=== PATIENT | female | born 1940 | race Caucasian/White ===

== ENCOUNTER 2018-01-27 03:51 | Inpatient (IN) | payer MEDICARE, BC ==
[2018-01-27 04:50] VITALS: BP 156/92
[2018-01-27] MEDS ORDERED: ACETAMINOPHEN WITH CODEINE PO PRN (04:58)
[2018-01-27] MEDS ORDERED: [UNRECOGNIZED DRUG - OTHER] PO PRN (04:58)
[2018-01-27 07:32] LABS: CHOLESTEROL 195 mg/dL (<200); HDL -HIGH DENSITY LIPOPROTEIN 61 mg/dL (23-92); TRIGLYCERIDES 79 mg/dL (<150)
[2018-01-27] MEDS: Levothyroxine 0.125 Mg Tab PO SCH (07:46)
[2018-01-27] MEDS ORDERED: FLUOCINOLONE ACETONIDE OIL EACH EAR PRN (08:46)
[2018-01-27] MEDS ORDERED: AMPHETAMINE PO PRN (08:46)
[2018-01-27] MEDS ORDERED: DEXTROAMPHETAMINE PO PRN (08:46)
[2018-01-27] MEDS: APAP/Codeine 300 mg/30 mg Tab PO PRN ×2 (08:57→17:37)
[2018-01-27] MEDS ORDERED: IBANDRONATE SODIUM 150 MG PO SCH (09:00)
[2018-01-27] MEDS ORDERED: DESVENLAFAXINE 100 MG PO SCH (09:00)
--- NOTE | 2018-01-27 09:16 | History and Physical ---
History of Present Illness - HPI Chief Complaint: Suicidal ideas HPI: Patient was taken to ER by son due to suicidal ideas. Patient refer to have neck pain and having suicidal thoughts, and per son information patient was trying to load her gun. Patient was transferred to this unit to continue of care. Vital Signs: Last Vital Signs Temp 98 F 01/27/18 04:50 Pulse 72 01/27/18 04:50 Resp 19 01/27/18 04:50 BP 156/92 01/27/18 04:50 Pulse Ox 93 01/27/18 04:50 Past Medical History Cardiovascular: Report: No Pertinent Hx Pulmonary: Report: No Pertinent Hx APPLE CHECKER: Report: No Pertinent Hx GI: Report: No Pertinent Hx Psych: Report: Depression Musculoskeletal: Report: No Pertinent Hx Rheumatologic: Report: No pertinent Hx Infectious Disease: Report: No Pertinent Hx Renal/: Report: No Pertinent Hx Endocrine: Report: Hypothyroidism Dermatology: Report: No Pertinent Hx - Past Surgical History Past Surgical History: No pertinent Hx Family Medical History - Family Member mother History Unknown: Yes Ethnicity: Unknown Living Status: Unknown Hx Family Cancer: (unknown) Hx Family Coronary Artery Disease: (unknown) Hx Family Congestive Heart Failure: (unknown) Hx Family Hypertension: (unknown) Hx Family Stroke: (unknown) Hx Family Diabetes: (unknown) Hx Family Seizures: (unknown) Hx Family Dementia: (unknown) Hx Family AIDS: (unknown) Hx Family COPD: (unknown) Hx Family Hepatitis: (unknown) Hx Family Psychiatric Problems: (unknown) Hx Family Tuberculosis: (unknown) Social History Smoke: No Alcohol: None Drugs: None Lives: With Family Domestic Violence: Negative - Medications Home Medications: Home Medication Medication Instructions Recorded Type Acetaminophen with Codeine 1 tab PO Q8HR PRN 01/27/18 History [Acetaminophen-Cod #4 Tablet] Bupropion HCl [Bupropion HCl Sr] 450 mg PO DAILY 01/27/18 History Citalopram Hydrobromide [Celexa] 40 mg PO DAILY 01/27/18 History Desvenlafaxine [Desvenlafaxine ER] 100 mg PO DAILY 01/27/18 History Dextroamphetamine/Amphetamine 20 mg PO DAILY PRN 01/27/18 History [Amphetamine Salt Combo*] Fluocinolone Acetonide Oil 5 drop EACH EAR BID PRN 01/27/18 History Gabapentin 100 mg PO TID 01/27/18 History Ibandronate Sodium [Boniva] 150 mg PO [id number] 01/27/18 History Levothyroxine [Synthroid] 0.125 mg PO QDAC 01/27/18 History Mirabegron [Myrbetriq] 25 mg PO DAILY 01/27/18 History - Allergies Allergies/Adverse Reactions: Allergies Allergy/AdvReac Type Severity Reaction Status Date / Time No Known Allergies Allergy Verified 01/27/18 04:34 Review of Systems - Review of Systems Constitutional: Report: No Significant Eyes: Report: No Significant ENT: Report: No Significant Respiratory: Report: No Significant Cardiovascular: Report: No Significant Gastrointestinal: Report: No Significant Genitourinary: Report: No Significant Musculoskeletal: Report: Neck Pain Skin: Report: No Significant Neurological: Report: No Significant Physical Exam - Physical Exam HEENT: Report: Ears Nose Throat within normal limits Neck: Report: Within normal limits Cardiovascular Systems: Report: Regular, Rate and Rhythm Respiratory: Report: Breath Sounds are within normal limits Abdomen: Report: Non-tender to palpation Back: Report: Inspection of back is within normal limits. Extremities: Report: Non-tender to palpation. Skin: Report: Color of skin is within normal limits Neuro/Psych: Report: Depressed affect - Lab Results All Lab Results last 24 hours: Laboratory Results - last 24 hr 01/27/18 07:41 Triglycerides 79 Cholesterol 195 LDL Cholesterol Direct 107 HDL Cholesterol 61 - Assessment Assessment: Patient is awake, alert, calm, in no acute distress. UA done in ER shows UTI. Dx: Suicidal thoughts, Depression, Chronic neck pain, UTU, Hypothyroidism. - Plan Plan: Patient is follow by Psychiatry, Continue with home meds, Bactrim is added to treatment. Will continue to monitor.
[2018-01-27] MEDS: Non-Formulary Item 1 EA (Mirabegron [Myrbetriq] 25 MG) PO SCH (09:30)
[2018-01-27] MEDS: Sulfamethoxazole/TMP 800/160mg Tab PO SCH ×2 (09:30→17:38)
[2018-01-28] MEDS: Levothyroxine 0.125 Mg Tab PO SCH (06:43)
[2018-01-28] MEDS: Sulfamethoxazole/TMP 800/160mg Tab PO SCH ×2 (09:37→17:29)
[2018-01-28] MEDS: Non-Formulary Item 1 EA (Mirabegron [Myrbetriq] 25 MG) PO SCH (10:11)
--- NOTE | 2018-01-28 10:19 | General Progress Note ---
Subjective - Review of Systems Service Date: 01/28/18 Subjective: I am fine Objective - Results Recent Labs: Laboratory Last Values Triglycerides 79 mg/dL (<150) 01/27/18 07:41 Cholesterol 195 mg/dL (<200) 01/27/18 07:41 LDL Cholesterol Direct 107 mg/dL (75-193) 01/27/18 07:41 HDL Cholesterol 61 mg/dL (23-92) 01/27/18 07:41 - Physical Exam Vitals and I&O: Vital Signs Temp 98.1 F 01/28/18 06:46 Pulse 71 01/28/18 06:46 Resp 19 01/28/18 08:00 BP 118/64 01/28/18 06:46 Pulse Ox 96 01/28/18 06:46 Intake & Output 01/27/18 01/28/18 01/28/18 18:59 06:59 18:59 Intake Total 120 Balance 120 Intake: Oral 120 Other: # Voids 2 # Bowel Movements 0 Active Medications: Current Medications Acetaminophen/Codeine Phosphate (Tylenol W/Codeine #3) 1 tab PO Q8H PRN PRN Reason: MODERATE PAIN (LEVEL 4-6) Stop: 03/28/18 05:30 Last Admin: 01/27/18 17:37 Dose: 1 tab Bupropion HCl (Wellbutrin Sr) 450 mg PO DAILY [facility] Stop: 03/28/18 08:59 Last Admin: 01/28/18 09:39 Dose: 450 mg Citalopram Hydrobromide (Celexa) 40 mg PO DAILY [facility] Stop: 03/28/18 08:59 Last Admin: 01/28/18 09:37 Dose: 40 mg Gabapentin (Neurontin) 100 mg PO TID [facility] Stop: 03/28/18 08:59 Last Admin: 01/28/18 09:36 Dose: 100 mg Levothyroxine Sodium (Synthroid) 0.125 mg PO QDAC [facility] Stop: 03/28/18 07:29 Last Admin: 01/28/18 06:43 Dose: 0.125 mg Lorazepam (Ativan) 0.5 mg PO Q4H PRN; Protocol PRN Reason: Anxiety Stop: 03/28/18 04:49 Last Admin: 01/27/18 20:48 Dose: 0.5 mg Quetiapine Fumarate (Seroquel) 25 mg PO HS [facility]; Protocol Stop: 03/28/18 20:59 Last Admin: 01/27/18 20:47 Dose: 25 mg Trimethoprim/Sulfamethoxazole (Bactrim Ds) 1 tab PO BID [facility] Stop: 03/28/18 09:29 Last Admin: 01/28/18 09:37 Dose: 1 tab Zolpidem Tartrate (Ambien) 5 mg PO HS PRN PRN Reason: Insomnia Stop: 03/28/18 04:49 General: Alert HEENT: Atraumatic Neck: Supple Cardiovascular: Regular rate Abdomen: Bowel sounds Extremities: Other (No edema) Neurological: Normal gait Skin: Other (Warm and dry) Psych/Mental Status: Other (Confused) Assessment/Plan - Assessment Assessment: Patient is awake, alert, calm, in no acute distress. UA done in ER shows UTI. Dx: Suicidal thoughts, Depression, Chronic neck pain, UTU, Hypothyroidism. - Plan Plan: Patient is follow by Psychiatry, Continue with home meds, Bactrim is added to treatment. Will continue to monitor.
[2018-01-28] MEDS: APAP/Codeine 300 mg/30 mg Tab PO PRN (15:28)
--- NOTE | 2018-01-28 16:41 | Psychiatric Evaluation ---
DATE OF SERVICE: JUSTIFICATION FOR HOSPITALIZATION: The patient apparently suicidal and history of bipolar. CHIEF COMPLAINT: "I was in a lot of pain. My neck felt like fire." HISTORY OF PRESENT ILLNESS: A 77-year-old female brought to the ER by son with suicidal ideations. The patient with neck pain, "sometimes neck pain." "Feels like fire," per the son. The patient was apparently trying to load a gun, concerns that she was trying to hurt herself. The patient states that she has had suicidal fantasies for "years and years." She states she has never attempted suicide. The patient is depressed, overwhelmed, overwhelmed with pain, trouble sleeping due to pain, okay appetite. The patient with intermittent hopeless thoughts. Currently not in pain "I am pretty comfortable right now." PAST PSYCHIATRIC HISTORY: Bipolar, long history of suicidal ideations and fantasies. FAMILY HISTORY: Noncontributory. SOCIAL HISTORY: The patient was born in [place]. Her father was apparently in the [place], so she moved around a lot. Currently, , one child, a son age 47. Living with son and the son's . No current drugs, alcohol, or tobacco. The patient alluding to depression, stating, "I got little of what I actually wanted out of life." MENTAL STATUS EXAMINATION: Fair eye contact. Speech within normal limits, mildly pressured. Mood depressed. Affect depressed. Thought processes were tangential, ruminative, difficult to redirect. The patient is suicidal, thoughts to kill self with a gun. No HI. The patient without any overt psychotic symptoms. Poor insight, poor judgment. PROVISIONAL DIAGNOSES: Bipolar per history. MEDICAL: Please see full H and P. ESTIMATED LENGTH OF STAY: 5-6 days. ASSESSMENT: The patient with history of bipolar, severely depressed, suicidal, endorsing intent and plan. PLAN: We will continue to monitor. The patient will likely benefit from mood stabilizing medications as Seroquel. TREATMENT PLAN: Includes group as well as milieu therapy. CONDITIONS FOR DISCHARGE: Improved mood, improved affect, better control of any suicidal symptoms. [facility]# [id number]
--- NOTE | 2018-01-29 02:16 | Progress Notes ---
DATE: 01/28/2018 SUBJECTIVE: The patient in the hospital, calm, cooperative. She is fairly confused, does not really know why she is here, forgetful, mostly in her bed, withdrawn. The patient noted to be disoriented, believing that nurses are doctors, does not know who I am, although I saw her yesterday, history of bipolar. Medications were noted including dosages and frequencies, currently on Celexa, low dose Seroquel. ASSESSMENT: The patient remains symptomatic. Ongoing safety concerns, concerns about impulsivity, hopeless thoughts. PLAN: We will continue to monitor, the patient was complaining of lot of neck pain originally, but she is not complaining of pain right now. [facility]# [id number]
[2018-01-29] MEDS: Levothyroxine 0.125 Mg Tab PO SCH (06:49)
--- NOTE | 2018-01-29 08:52 | General Progress Note ---
Subjective - Review of Systems Service Date: 01/29/18 Subjective: I am fine Objective - Results Recent Labs: Laboratory Last Values Triglycerides 79 mg/dL (<150) 01/27/18 07:41 Cholesterol 195 mg/dL (<200) 01/27/18 07:41 LDL Cholesterol Direct 107 mg/dL (75-193) 01/27/18 07:41 HDL Cholesterol 61 mg/dL (23-92) 01/27/18 07:41 TSH 4.72 uIU/ml (0.34-5.60) 01/28/18 10:47 - Physical Exam Vitals and I&O: Vital Signs Temp 97.4 F 01/29/18 06:26 Pulse 68 01/29/18 06:26 Resp 19 01/29/18 06:26 BP 110/62 01/29/18 06:26 Pulse Ox 97 01/29/18 06:26 Intake & Output 01/28/18 01/29/18 01/29/18 18:59 06:59 18:59 Intake Total 1500 240 Balance 1500 240 Intake: Oral 1500 240 Other: # Voids 3 2 # Bowel Movements 0 0 Active Medications: Current Medications Acetaminophen/Codeine Phosphate (Tylenol W/Codeine #3) 1 tab PO Q8H PRN PRN Reason: MODERATE PAIN (LEVEL 4-6) Stop: 03/28/18 05:30 Last Admin: 01/28/18 15:28 Dose: 1 tab Bupropion HCl (Wellbutrin Sr) 450 mg PO DAILY [facility] Stop: 03/28/18 08:59 Last Admin: 01/28/18 09:39 Dose: 450 mg Citalopram Hydrobromide (Celexa) 40 mg PO DAILY [facility] Stop: 03/28/18 08:59 Last Admin: 01/28/18 09:37 Dose: 40 mg Gabapentin (Neurontin) 100 mg PO TID [facility] Stop: 03/28/18 08:59 Last Admin: 01/28/18 20:16 Dose: 100 mg Levothyroxine Sodium (Synthroid) 0.125 mg PO QDAC [facility] Stop: 03/28/18 07:29 Last Admin: 01/29/18 06:49 Dose: 0.125 mg Lorazepam (Ativan) 0.5 mg PO Q4H PRN; Protocol PRN Reason: Anxiety Stop: 03/28/18 04:49 Last Admin: 01/28/18 20:16 Dose: 0.5 mg Quetiapine Fumarate (Seroquel) 25 mg PO HS [facility]; Protocol Stop: 03/28/18 20:59 Last Admin: 01/28/18 20:16 Dose: 25 mg Trimethoprim/Sulfamethoxazole (Bactrim Ds) 1 tab PO BID [facility] Stop: 03/28/18 09:29 Last Admin: 01/28/18 17:29 Dose: 1 tab Zolpidem Tartrate (Ambien) 5 mg PO HS PRN PRN Reason: Insomnia Stop: 03/28/18 04:49 General: Alert HEENT: Atraumatic Neck: Supple Cardiovascular: Regular rate Abdomen: Bowel sounds Extremities: Other (No edema) Neurological: Normal gait Skin: Other (Warm and dry) Psych/Mental Status: Other (Confused) Assessment/Plan - Assessment Assessment: Patient is awake, alert, calm, in no acute distress. UA done in ER shows UTI. Dx: Suicidal thoughts, Depression, Chronic neck pain, UTU, Hypothyroidism. - Plan Plan: Patient is follow by Psychiatry, Continue with home meds, Bactrim is added to treatment. Will continue to monitor.
[2018-01-29] MEDS: Sulfamethoxazole/TMP 800/160mg Tab PO SCH ×2 (08:55→17:09)
[2018-01-29] MEDS: APAP/Codeine 300 mg/30 mg Tab PO PRN (15:53)
--- NOTE | 2018-01-29 21:30 | Progress Notes ---
DATE: 01/29/2018 SUBJECTIVE: The patient in the hospital calm, cooperative, fairly confused, rambling, making some nonsensical statements. No acute distress, somewhat confused as to why she is here, alluding to ongoing neck pain, irritable, periods of confusion and withdrawn, mostly isolative. The patient is sleeping fairly well, eating fairly well. ASSESSMENT: The patient is still depressed, withdrawn, ongoing symptoms, suicidality, severe depression and ongoing neck pain. PLAN: We will continue to monitor. Medications were noted. I would recommend ongoing continuation of medications as well as optimizing pain management. JOB# [id number]
[2018-01-30] MEDS: APAP/Codeine 300 mg/30 mg Tab PO PRN ×2 (00:25→16:36)
[2018-01-30] MEDS: Levothyroxine 0.125 Mg Tab PO SCH (06:50)
--- NOTE | 2018-01-30 07:17 | Progress Notes ---
DATE: 01/30/2018 SUBJECTIVE: The patient is somewhat unruly asking for different pain medications, they are not on formulary. The patient still rambling, poorly oriented, seen this morning, somewhat restless, guarded about any SI, some yelling episodes. Sleeping fairly well, eating fairly well. Slept about 8 hours. ASSESSMENT: The patient is depressed, withdrawn, forgetful, guarded about any SI, still complaining of pain medications. PLAN: We will continue to monitor, titrate and adjust medications. Given ongoing symptoms, she is not safe for discharge. Medications were reviewed including dosages and frequencies. Consider continue Seroquel and Celexa. JOB# [id number]
[2018-01-30] MEDS: Sulfamethoxazole/TMP 800/160mg Tab PO SCH ×2 (09:27→16:36)
--- NOTE | 2018-01-30 10:20 | General Progress Note ---
Subjective - Review of Systems Service Date: 01/30/18 Subjective: I am fine Objective - Results Recent Labs: Laboratory Last Values Triglycerides 79 mg/dL (<150) 01/27/18 07:41 Cholesterol 195 mg/dL (<200) 01/27/18 07:41 LDL Cholesterol Direct 107 mg/dL (75-193) 01/27/18 07:41 HDL Cholesterol 61 mg/dL (23-92) 01/27/18 07:41 TSH 4.72 uIU/ml (0.34-5.60) 01/28/18 10:47 - Physical Exam Vitals and I&O: Vital Signs Temp 98.9 F 01/30/18 05:55 Pulse 82 01/30/18 05:55 Resp 19 01/30/18 05:55 BP 143/55 01/30/18 05:55 Pulse Ox 96 01/30/18 05:55 Active Medications: Current Medications Acetaminophen/Codeine Phosphate (Tylenol W/Codeine #3) 1 tab PO Q8H PRN PRN Reason: MODERATE PAIN (LEVEL 4-6) Stop: 03/28/18 05:30 Last Admin: 01/30/18 00:25 Dose: 1 tab Bupropion HCl (Wellbutrin Sr) 450 mg PO DAILY [facility] Stop: 03/28/18 08:59 Last Admin: 01/30/18 09:27 Dose: 450 mg Citalopram Hydrobromide (Celexa) 40 mg PO DAILY [facility] Stop: 03/28/18 08:59 Last Admin: 01/30/18 09:27 Dose: 40 mg Gabapentin (Neurontin) 100 mg PO TID [facility] Stop: 03/28/18 08:59 Last Admin: 01/30/18 09:27 Dose: 100 mg Levothyroxine Sodium (Synthroid) 0.125 mg PO QDAC [facility] Stop: 03/28/18 07:29 Last Admin: 01/30/18 06:50 Dose: 0.125 mg Lorazepam (Ativan) 0.5 mg PO Q4H PRN; Protocol PRN Reason: Anxiety Stop: 03/28/18 04:49 Last Admin: 01/28/18 20:16 Dose: 0.5 mg Quetiapine Fumarate (Seroquel) 25 mg PO HS [facility]; Protocol Stop: 03/28/18 20:59 Last Admin: 01/29/18 20:54 Dose: 25 mg Trimethoprim/Sulfamethoxazole (Bactrim Ds) 1 tab PO BID [facility] Stop: 03/28/18 09:29 Last Admin: 01/30/18 09:27 Dose: 1 tab Zolpidem Tartrate (Ambien) 5 mg PO HS PRN PRN Reason: Insomnia Stop: 03/28/18 04:49 General: Alert HEENT: Atraumatic Neck: Supple Cardiovascular: Regular rate Abdomen: Bowel sounds Extremities: Other (No edema) Neurological: Normal gait Skin: Other (Warm and dry) Psych/Mental Status: Other (Confused) Assessment/Plan - Assessment Assessment: Patient is awake, alert, calm, in no acute distress. UA done in ER shows UTI. Dx: Suicidal thoughts, Depression, Chronic neck pain, UTU, Hypothyroidism. - Plan Plan: Patient is follow by Psychiatry, Continue with home meds, Bactrim is added to treatment. Will continue to monitor. Nutritional Asmnt/Malnutr-PDOC - Dietary Evaluation Malnutrition Findings (Please click <Entered> for more info): Nutritional Asmnt/Malnutrition Start: 01/29/18 12: 51 Text: Status: Complete Freq: Protocol: Document 01/29/18 12:51 GUNNER (Rec: 01/29/18 13:05 GUNNER [id number]) Nutritional Asmnt/Malnutrition Patient General Information Nutritional Screening Moderate Risk Diagnosis suicidal ideation Pertinent Medical Hx/Surgical Hx hypothyroidism, depression, bipolar Subjective Information Pt eating lunch in bed at time of visit. Pt's very alert and oriented, provided food preferences and diet profile updated. Nursing noted PO intake: 100%. Current Diet Order/ Nutrition Support regular Pertinent Medications synthroid, seroquel Pertinent Labs 01/27 Nutrition related labs WNL Nutritional Hx/Data Height 1.6 m Height (Calculated Centimeters) 160.0 Current Weight (lbs) 105.324 kg Weight (Calculated Kilograms) 105.3 Weight (Calculated Grams) 866268.1 [place] Body Weight 115 lb Body Mass Index (BMI) 41.1 Weight Status Obese GI Symptoms GI Symptoms None Last BM none noted Difficult in: None Food Allergies No Skin Integrity/Comment: intact, koko 21 Current %PO Good (75-100%) Estimated Nutritional Goals BEE in Kcals: Adj wt of IBW Calories/Kcals/Kg 25-30 (based on adj wt 65.6 kg ) Kcals Calculated Protein: Adj wt of IBW Protein g/k.0 Protein Calculated 66 g Fluid: ml (1 ml/kcal) Nutritional Problem No current Nutrition Prob Problem no nutrition dx at this time Malnutrition Alert Is there a minimum of two criteria No selected? Query Text:Check all the applicable criteria. A minimum of two criteria are recommended for diagnosis of either severe or non-severe malnutrition. Malnutrition Related to Morbid Obesity Malnutrition related to morbid obesity No Intervention/Recommendation Comments 1. Continue with regular diet as ordered 2. Monitor PO intake, wt, labs and skin integrity 3. F/U as low risk in 7 days, 02/05 Expected Outcomes/Goals Expected Outcomes/Goals 1. PO intake to meet at least 75% of nutritional needs. 2. Wt stability, skin to remain intact, nutrition related labs to remain WNL Reviewed by Steffanie Polanco RD
[2018-01-30] MEDS: TYLENOL PO SCH (16:19)
[2018-01-31] MEDS: APAP/Codeine 300 mg/30 mg Tab PO PRN (01:35)
[2018-01-31] MEDS: Levothyroxine 0.125 Mg Tab PO SCH (06:40)
--- NOTE | 2018-01-31 07:10 | Progress Notes ---
DATE: 01/31/2018 SUBJECTIVE: The patient is depressed, withdrawn, still argumentative at times, very sore neck, painful neck, some periods of forgetfulness. At first, believing it was 1986, then realizing it is 2017. The patient is believing that medication is still on the floor, very fixated on getting Tylenol #4. Staff concerned because she was making statements that she would keep her medications stashed in her room, the medications coming from home, concerns for cheeking. The patient states everything is "fine." She states that she still feels suicidal. "It is always there." ASSESSMENT: The patient is depressed, withdrawn, some bizarre behaviors. PLAN: We will continue to monitor. Continue Celexa. The patient remains impulsive, unpredictable behaviors. JOB# [id number]
[2018-01-31] MEDS: Sulfamethoxazole/TMP 800/160mg Tab PO SCH ×2 (08:43→17:08)
--- NOTE | 2018-01-31 11:02 | General Progress Note ---
Subjective - Review of Systems Service Date: 01/31/18 Subjective: Patient confused Objective - Results Recent Labs: Laboratory Last Values Triglycerides 79 mg/dL (<150) 01/27/18 07:41 Cholesterol 195 mg/dL (<200) 01/27/18 07:41 LDL Cholesterol Direct 107 mg/dL (75-193) 01/27/18 07:41 HDL Cholesterol 61 mg/dL (23-92) 01/27/18 07:41 TSH 4.72 uIU/ml (0.34-5.60) 01/28/18 10:47 - Physical Exam Vitals and I&O: Vital Signs Temp 97.2 F 01/31/18 06:33 Pulse 77 01/31/18 06:33 Resp 18 01/31/18 06:33 BP 118/65 01/31/18 06:33 Pulse Ox 96 01/31/18 06:33 Intake & Output 01/30/18 01/31/18 01/31/18 18:59 06:59 18:59 Intake Total 120 Balance 120 Intake: Oral 120 Other: # Voids 2 Active Medications: Current Medications Acetaminophen/Codeine Phosphate (Tylenol W/Codeine #3) 1 tab PO Q8H PRN PRN Reason: MODERATE PAIN (LEVEL 4-6) Stop: 03/28/18 05:30 Last Admin: 01/31/18 01:35 Dose: 1 tab Bupropion HCl (Wellbutrin Sr) 450 mg PO DAILY [facility] Stop: 03/28/18 08:59 Last Admin: 01/31/18 08:43 Dose: 450 mg Citalopram Hydrobromide (Celexa) 40 mg PO DAILY [facility] Stop: 03/28/18 08:59 Last Admin: 01/31/18 08:43 Dose: 40 mg Gabapentin (Neurontin) 100 mg PO TID [facility] Stop: 03/28/18 08:59 Last Admin: 01/31/18 08:43 Dose: 100 mg Levothyroxine Sodium (Synthroid) 0.125 mg PO QDAC [facility] Stop: 03/28/18 07:29 Last Admin: 01/31/18 06:40 Dose: 0.125 mg Lorazepam (Ativan) 0.5 mg PO Q4H PRN; Protocol PRN Reason: Anxiety Stop: 03/28/18 04:49 Last Admin: 01/28/18 20:16 Dose: 0.5 mg Quetiapine Fumarate (Seroquel) 25 mg PO HS [facility]; Protocol Stop: 03/28/18 20:59 Last Admin: 01/30/18 20:57 Dose: 25 mg Trimethoprim/Sulfamethoxazole (Bactrim Ds) 1 tab PO BID [facility] Stop: 03/28/18 09:29 Last Admin: 01/31/18 08:43 Dose: 1 tab Zolpidem Tartrate (Ambien) 5 mg PO HS PRN PRN Reason: Insomnia Stop: 03/28/18 04:49 General: Alert HEENT: Atraumatic Neck: Supple Cardiovascular: Regular rate Abdomen: Bowel sounds Extremities: Other (No edema) Neurological: Normal gait Skin: Other (Warm and dry) Psych/Mental Status: Other (Confused) Assessment/Plan - Assessment Assessment: Patient is awake, alert, calm, in no acute distress. UA done in ER shows UTI. Dx: Suicidal thoughts, Depression, Chronic neck pain, UTU, Hypothyroidism. - Plan Plan: Patient is follow by Psychiatry, Continue with home meds, Bactrim is added to treatment. Will continue to monitor. Nutritional Asmnt/Malnutr-PDOC - Dietary Evaluation Malnutrition Findings (Please click <Entered> for more info): Nutritional Asmnt/Malnutrition Start: 01/29/18 12: 51 Text: Status: Complete Freq: Protocol: Document 01/29/18 12:51 GUNNER (Rec: 01/29/18 13:05 GUNNER [id number]) Nutritional Asmnt/Malnutrition Patient General Information Nutritional Screening Moderate Risk Diagnosis suicidal ideation Pertinent Medical Hx/Surgical Hx hypothyroidism, depression, bipolar Subjective Information Pt eating lunch in bed at time of visit. Pt's very alert and oriented, provided food preferences and diet profile updated. Nursing noted PO intake: 100%. Current Diet Order/ Nutrition Support regular Pertinent Medications synthroid, seroquel Pertinent Labs 01/27 Nutrition related labs WNL Nutritional Hx/Data Height 1.6 m Height (Calculated Centimeters) 160.0 Current Weight (lbs) 105.324 kg Weight (Calculated Kilograms) 105.3 Weight (Calculated Grams) 517481.1 [place] Body Weight 115 lb Body Mass Index (BMI) 41.1 Weight Status Obese GI Symptoms GI Symptoms None Last BM none noted Difficult in: None Food Allergies No Skin Integrity/Comment: intact, koko 21 Current %PO Good (75-100%) Estimated Nutritional Goals BEE in Kcals: Adj wt of IBW Calories/Kcals/Kg 25-30 (based on adj wt 65.6 kg ) Kcals Calculated Protein: Adj wt of IBW Protein g/k.0 Protein Calculated 66 g Fluid: ml (1 ml/kcal) Nutritional Problem No current Nutrition Prob Problem no nutrition dx at this time Malnutrition Alert Is there a minimum of two criteria No selected? Query Text:Check all the applicable criteria. A minimum of two criteria are recommended for diagnosis of either severe or non-severe malnutrition. Malnutrition Related to Morbid Obesity Malnutrition related to morbid obesity No Intervention/Recommendation Comments 1. Continue with regular diet as ordered 2. Monitor PO intake, wt, labs and skin integrity 3. F/U as low risk in 7 days, 02/05 Expected Outcomes/Goals Expected Outcomes/Goals 1. PO intake to meet at least 75% of nutritional needs. 2. Wt stability, skin to remain intact, nutrition related labs to remain WNL Reviewed by Steffanie Polanco RD
[2018-01-31] MEDS: TYLENOL PO SCH (15:55)
[2018-02-01] MEDS: Levothyroxine 0.125 Mg Tab PO SCH (06:45)
[2018-02-01] MEDS: APAP/Codeine 300 mg/30 mg Tab PO PRN ×2 (07:07→19:11)
[2018-02-01] MEDS: Sulfamethoxazole/TMP 800/160mg Tab PO SCH ×2 (08:54→17:11)
--- NOTE | 2018-02-01 09:00 | General Progress Note ---
Subjective - Review of Systems Service Date: 02/01/18 Subjective: Patient confused, in no acute distress. Objective - Results Recent Labs: Laboratory Last Values Triglycerides 79 mg/dL (<150) 01/27/18 07:41 Cholesterol 195 mg/dL (<200) 01/27/18 07:41 LDL Cholesterol Direct 107 mg/dL (75-193) 01/27/18 07:41 HDL Cholesterol 61 mg/dL (23-92) 01/27/18 07:41 TSH 4.72 uIU/ml (0.34-5.60) 01/28/18 10:47 - Physical Exam Vitals and I&O: Vital Signs Temp 97.7 F 02/01/18 05:49 Pulse 72 02/01/18 05:49 Resp 18 02/01/18 05:49 BP 142/91 02/01/18 05:49 Pulse Ox 94 02/01/18 05:49 Intake & Output 01/31/18 02/01/18 02/01/18 18:59 06:59 18:59 Intake Total 1700 480 Balance 1700 480 Intake: Oral 1700 480 Other: # Voids 3 2 # Bowel Movements 0 Active Medications: Current Medications Acetaminophen/Codeine Phosphate (Tylenol W/Codeine #3) 1 tab PO Q8H PRN PRN Reason: MODERATE PAIN (LEVEL 4-6) Stop: 03/28/18 05:30 Last Admin: 02/01/18 07:07 Dose: 1 tab Bupropion HCl (Wellbutrin Sr) 450 mg PO DAILY [facility] Stop: 03/28/18 08:59 Last Admin: 02/01/18 08:54 Dose: 450 mg Citalopram Hydrobromide (Celexa) 40 mg PO DAILY [facility] Stop: 03/28/18 08:59 Last Admin: 02/01/18 08:54 Dose: 40 mg Gabapentin (Neurontin) 100 mg PO TID [facility] Stop: 03/28/18 08:59 Last Admin: 02/01/18 08:54 Dose: 100 mg Levothyroxine Sodium (Synthroid) 0.125 mg PO QDAC [facility] Stop: 03/28/18 07:29 Last Admin: 02/01/18 06:45 Dose: 0.125 mg Lorazepam (Ativan) 0.5 mg PO Q4H PRN; Protocol PRN Reason: Anxiety Stop: 03/28/18 04:49 Last Admin: 01/28/18 20:16 Dose: 0.5 mg Quetiapine Fumarate (Seroquel) 25 mg PO HS [facility]; Protocol Stop: 03/28/18 20:59 Last Admin: 01/31/18 21:39 Dose: 25 mg Trimethoprim/Sulfamethoxazole (Bactrim Ds) 1 tab PO BID [facility] Stop: 03/28/18 09:29 Last Admin: 02/01/18 08:54 Dose: 1 tab Zolpidem Tartrate (Ambien) 5 mg PO HS PRN PRN Reason: Insomnia Stop: 03/28/18 04:49 Last Admin: 01/31/18 23:16 Dose: 5 mg General: Alert HEENT: Atraumatic Neck: Supple Cardiovascular: Regular rate Abdomen: Bowel sounds Extremities: Other (No edema) Neurological: Normal gait Skin: Other (Warm and dry) Psych/Mental Status: Other (Confused) Assessment/Plan - Assessment Assessment: Patient is awake, alert, calm, in no acute distress. UA done in ER shows UTI. Dx: Suicidal thoughts, Depression, Chronic neck pain, UTU, Hypothyroidism. - Plan Plan: Patient is follow by Psychiatry, Continue with home meds, Bactrim is added to treatment. Will continue to monitor. Nutritional Asmnt/Malnutr-PDOC - Dietary Evaluation Malnutrition Findings (Please click <Entered> for more info): Nutritional Asmnt/Malnutrition Start: 01/29/18 12: 51 Text: Status: Complete Freq: Protocol: Document 01/29/18 12:51 GUNNER (Rec: 01/29/18 13:05 GUNNER [id number]) Nutritional Asmnt/Malnutrition Patient General Information Nutritional Screening Moderate Risk Diagnosis suicidal ideation Pertinent Medical Hx/Surgical Hx hypothyroidism, depression, bipolar Subjective Information Pt eating lunch in bed at time of visit. Pt's very alert and oriented, provided food preferences and diet profile updated. Nursing noted PO intake: 100%. Current Diet Order/ Nutrition Support regular Pertinent Medications synthroid, seroquel Pertinent Labs 01/27 Nutrition related labs WNL Nutritional Hx/Data Height 1.6 m Height (Calculated Centimeters) 160.0 Current Weight (lbs) 105.324 kg Weight (Calculated Kilograms) 105.3 Weight (Calculated Grams) 733030.1 [place] Body Weight 115 lb Body Mass Index (BMI) 41.1 Weight Status Obese GI Symptoms GI Symptoms None Last BM none noted Difficult in: None Food Allergies No Skin Integrity/Comment: intact, koko 21 Current %PO Good (75-100%) Estimated Nutritional Goals BEE in Kcals: Adj wt of IBW Calories/Kcals/Kg 25-30 (based on adj wt 65.6 kg ) Kcals Calculated Protein: Adj wt of IBW Protein g/k.0 Protein Calculated 66 g Fluid: ml (1 ml/kcal) Nutritional Problem No current Nutrition Prob Problem no nutrition dx at this time Malnutrition Alert Is there a minimum of two criteria No selected? Query Text:Check all the applicable criteria. A minimum of two criteria are recommended for diagnosis of either severe or non-severe malnutrition. Malnutrition Related to Morbid Obesity Malnutrition related to morbid obesity No Intervention/Recommendation Comments 1. Continue with regular diet as ordered 2. Monitor PO intake, wt, labs and skin integrity 3. F/U as low risk in 7 days, 02/05 Expected Outcomes/Goals Expected Outcomes/Goals 1. PO intake to meet at least 75% of nutritional needs. 2. Wt stability, skin to remain intact, nutrition related labs to remain WNL Reviewed by Steffanie Polanco RD
--- NOTE | 2018-02-01 16:45 | Progress Notes ---
DATE: 02/01/2018 SUBJECTIVE: A 77-year-old female had been suicidal, upset, she is improving, calmer, more cooperative, noting any thoughts of self harm, dissipating, decreasing. The patient will be discharging back home to the son. The patient motivated for psych followup. The patient is still somewhat depressed, withdrawn, neck pain, but is reading a book, brighter affect, enjoys reading. No delusions noted. No SI, no HI. Sleeping well, eating well. ASSESSMENT: The patient seems to be improving. The patient is still fixated on Tylenol #4, but this seems to be helping her neck pain, family bring it in. PLAN: We will continue to monitor. Monitor for further 24 hours. We are on the side of caution to make sure the patient is devoid of any suicidal symptoms. JOB# [id number]
[2018-02-02] MEDS: Levothyroxine 0.125 Mg Tab PO SCH (06:54)
[2018-02-02] MEDS: Sulfamethoxazole/TMP 800/160mg Tab PO SCH ×2 (09:18→16:36)
[2018-02-02] MEDS: APAP/Codeine 300 mg/30 mg Tab PO PRN ×3 (09:18→18:40)
--- NOTE | 2018-02-02 15:49 | Discharge Summary ---
DATE OF DISCHARGE: 02/02/2018 DATE OF DISCHARGE: 02/02/2018. CHIEF COMPLAINT: Suicidal. HISTORY OF PRESENT ILLNESS: A 77-year-old female brought in by son, suicidal, neck pain. Apparently was trying to load a gun, concerns that she was trying to hurt herself, "I had that." Toward the latter end of her hospitalization, her mood improved, affect improved, more hopeful, optimistic and motivated. No longer suicidal. CONDITION UPON DISCHARGE: Improved. Good attention to ADLs, good eye contact. Speech within normal limits. Mood "much better," affect bright and broad. Thought processes were linear. No SI, no HI, no intent, no plan. No evidence of any psychotic symptoms. Improved insight and judgment. Good family support from son. Gun was removed from the home, no longer in her access. DISCHARGE DIAGNOSES: Major depression, recurrent, severe, no psychosis; rule out bipolar disorder, but for all intents and purposes. Current diagnosis seems to be major depression, also anxiety, unspecified. OTHER MEDICAL: Please see full H and P. PROGNOSIS: If the patient follows up with outpatient mental health services and remains compliant to treatment, prognosis will improve, otherwise guarded. Good energy by the latter end of her hospitalization. JOB# [id number]
== END 2018-02-02 18:30 | disposition home or self-care (01) | DRG 885 ==
LOC: GERO2 03:51
PROVIDERS: ADMIT Psychiatry & Neurology Psychiatry; ATTEND Psychiatry & Neurology Psychiatry
DX: F33.2 Major depressive disorder, recurrent severe without psychotic features (principal); N39.0 Urinary tract infection, site not specified; E03.9 Hypothyroidism, unspecified; G89.29 Other chronic pain; M54.9 Dorsalgia, unspecified; F41.9 Anxiety disorder, unspecified; Z79.899 Other long term (current) drug therapy
CPT/HCPCS: 36415-UA; 80061-TC; 84443-TC; Z7610